=== PATIENT | male | born 1950 | race Caucasian/White ===

== ENCOUNTER 2016-09-05 18:06 | Inpatient (IN) ==
[2016-09-05] MEDS ORDERED: *HR* LORazepam 0.5 MG TABLET PO ONE (19:02)
[2016-09-05] MEDS ORDERED: Vancomycin 1,250 MG in D5% in Water 250 ML IVPB ONE (19:02)
[2016-09-05 19:39] LABS: Basophils % 0.4 %; Eosinophils # 0.1 K/mcL (0.0-0.6); Hematocrit 42.3 % (37.5-50.1); Hemoglobin 14.5 g/dL (12.9-16.9); Immature Granulocytes % 0.1 % (0-4); Lymphocytes # 2.3 K/mcL (0.6-4.6); Lymphocytes % 34.3 %; Mean Corpuscular HGB Conc 34.3 g/dL (31.6-35.5); Mean Corpuscular Hemoglobin 32.9 pg (28.0-33.3); Mean Corpuscular Volume 95.9 fL (83.0-100.0); Mean Platelet Volume 11.4 fL (9.4-12.4); Monocytes # 0.5 K/mcL (0.0-1.3); Monocytes % 7.5 %; Neutrophils # 3.9 K/mcL (1.6-8.9); Platelet Count 178 K/mcL (140-400); Red Blood Count 4.41 M/mcL (4.19-5.50); Red Cell Distribution Width 12.4 % (11.5-14.5); Segmented Neutrophils % 56.7 %
[2016-09-05 19:54] LABS: Alanine Aminotransferase 50 Units/L (0-55); Albumin 4.7 g/dL (3.5-5.0); Albumin/Globulin Ratio 1.4 (1.1-2.2); Alkaline Phosphatase 84 Units/L (38-126); Aspartate Amino Transferase 48 Units/L (5-34); BUN/Creatinine Ratio 16 (6-26); Blood Urea Nitrogen 14 mg/dL (8-26); C-Reactive Protein 2 mg/L (Less than 5); Calcium 10.1 mg/dL (8.6-10.8); Carbon Dioxide 23 mEq/L (19-29); Chloride 105 mEq/L (98-109); Globulin 3.4 g/dL (2.4-3.5); Glucose 125 mg/dL (70-99); Osmolality,Calculated 292 (280-300); Potassium 4.1 mEq/L (3.5-4.5); Sodium 140 mEq/L (136-145); Total Protein 8.1 g/dL (6.0-8.3); eGFR For African Americans > 60 (> 60); eGFR For Non-African Americans > 60 (> 60)
--- NOTE | 2016-09-05 21:23 | Emergency Department Note ---
Disposition Clinical Impression: Osteomyelitis Qualifiers: Osteomyelitis location: unspecified site Chronicity: unspecified Qualified Code (s): M86.9 - Osteomyelitis, unspecified Disposition: Admitted As Inpatient Condition: Good General Adult HPI - General Chief complaint: ED Extremity Problem,Nontraumatic Stated complaint: finger infection s/p cat bite Source: patient, EMS Limitations: no limitations Nursing Notes Reviewed: Yes Vital Signs Reviewed: Yes - History of Present Illness HPI Narrative: 58-year-old male with cat bite 3 weeks ago. He has been getting ceftriaxone at the [facility] every other day. He has had ongoing necrosis to the right index finger. He is right-hand dominant. His redness and streaking is improved but a necrotic base has been ongoing. He was seen by [facility] today and an x-ray was obtained. There is concern for possibility myelitis of the distal phalanx. Pain Scale: 0 - Related Data Home Medications Medication Instructions Recorded Confirmed Amoxicillin/Clavulanate [Augmentin] 875 mg PO BID 09/05/16 09/05/16 Atorvastatin [Lipitor] 60 mg PO HS 09/05/16 09/05/16 Bacitracin OINT [Ak-Tracin] 1 appl TP BID 09/05/16 09/05/16 Doxycycline Monohydrate 100 mg PO Q12H 09/05/16 09/05/16 Naproxen [Naprosyn] 500 mg PO BID PRN 09/05/16 09/05/16 Omeprazole [PriLOSEC] 20 mg PO BIDAC 09/05/16 09/05/16 Allergies Allergy/AdvReac Type Severity Reaction Status Date / Time No Known Allergies Allergy Verified 08/12/16 20:49 All systems ED: reviewed and negative except as stated. Past Medical History - Past Medical History Medical history: Reports: GERD, hyperlipidemia Psychiatric history: Reports: no psych history - Social History Smoking Status: Never smoker Smokeless Tobacco Status: No Alcohol use: Reports: none Drug use: Reports: none Physical Exam Alert and oriented no acute distress Pupils equal and reactive to light Trachea is midline Lungs are clear and equal bilaterally No murmur rub or gallop noted Abdomen is soft and nontender There is a small amount of swelling and aquatic-based the right distal phalanx Extremities are well perfused No neurological deficit - General Limitations: no limitations General appearance: alert, in no apparent distress Course Vital Signs Temperature 97.9 F 09/05/16 18:07 Pulse Rate 64 09/05/16 18:07 Respiratory Rate 16 09/05/16 18:07 Blood Pressure 177/108 09/05/16 18:07 O2 Sat by Pulse Oximetry 98 09/05/16 18:07 Temperature 97.9 F 09/05/16 18:07 Pulse Rate 73 09/05/16 19:38 Respiratory Rate 16 09/05/16 19:38 Blood Pressure 157/108 09/05/16 19:38 O2 Sat by Pulse Oximetry 95 09/05/16 19:38 Oxygen Delivery Oxygen Delivery Room Air Medical Decision Making - MDM Narrative Medical decision making narrative: Vancomycin, ceftriaxone initiated. I discussed the case with the on-call orthopedist. He agreed that the patient could be admitted to medicine and he will appropriately consult first thing in the morning. The patient be nothing by mouth at midnight. Cultures were sent. CRP is pending sedimentation rate is elevated. X-ray shows osteomyelitis. - Medical Records Medical records reviewed: Yes I reviewed the patient's medical records. - Lab Data Lab results reviewed: Yes I reviewed the patient's lab results. Result diagrams: 09/05/16 19:26 09/05/16 19:26 Lab Results 09/05/16 09/05/16 09/05/16 Range/Units 19:26 19:26 19:26 WBC 6.8 (4.3-11.1) K/mcL RBC 4.41 (4.19-5.50) M/mcL Hgb 14.5 (12.9-16.9) g/dL Hct 42.3 (37.5-50.1) % MCV 95.9 (83.0-100.0) fL MCH 32.9 (28.0-33.3) pg MCHC 34.3 (31.6-35.5) g/dL RDW 12.4 (11.5-14.5) % Plt Count 178 (140-400) K/mcL MPV 11.4 (9.4-12.4) fL Immature Gran % 0.1 (0-4) % Seg Neutrophils % 56.7 % Lymphocytes % 34.3 % Monocytes % 7.5 % Eosinophils % 1.0 % Basophils % 0.4 % Neutrophils # 3.9 (1.6-8.9) K/mcL Lymphocytes # 2.3 (0.6-4.6) K/mcL Monocytes # 0.5 (0.0-1.3) K/mcL Eosinophils # 0.1 (0.0-0.6) K/mcL Basophils # 0.0 (0.0-0.2) K/mcL ESR 46 H (0-10) mm/hr Sodium 140 (136-145) mEq/L Potassium 4.1 (3.5-4.5) mEq/L Chloride 105 (98-109) mEq/L Carbon Dioxide 23 (19-29) mEq/L BUN 14 (8-26) mg/dL Creatinine 0.88 (0.72-1.25) mg/dL Est GFR ( Amer) > 60 (> 60) Est GFR (Non-Af Amer) > 60 (> 60) BUN/Creatinine Ratio 16 (6-26) Glucose 125 H (70-99) mg/dL Calculated Osmolality 292 (280-300) Calcium 10.1 (8.6-10.8) mg/dL Total Bilirubin 1.0 (0.2-1.2) mg/dL AST 48 H (5-34) Units/L ALT 50 (0-55) Units/L Alkaline Phosphatase 84 (38-126) Units/L C-Reactive Protein 2 (Less than 5) mg/L Serum Total Protein 8.1 (6.0-8.3) g/dL Albumin 4.7 (3.5-5.0) g/dL Globulin 3.4 (2.4-3.5) g/dL Albumin/Globulin Ratio 1.4 (1.1-2.2)
[2016-09-06] MEDS ORDERED: *HR* Promethazine 25 MG/ML VIAL IVP PRN (02:49)
[2016-09-06] MEDS ORDERED: Naloxone 0.4 MG/ML INJ IVP PRN (02:49)
[2016-09-06] MEDS ORDERED: *HR* HYDROmorphone (PF) 1 MG/ML SYRINGE IVP PRN (02:49)
[2016-09-06] MEDS ORDERED: Acetaminophen 325 MG TABLET PO PRN (02:49)
[2016-09-06] MEDS ORDERED: Vancomycin 1,250 MG in D5% in Water 250 ML IVPB SCH (03:00)
--- NOTE | 2016-09-06 03:03 | Internal Med History&Physical ---
Date of Encounter: 09/06/16 Time of Encounter: 02:45 Assessment and Plan (1) Cat bite of right hand including fingers with infection Status: Acute . Qualifiers: Encounter type: subsequent encounter Qualified Code(s): S61.259D - Open bite of unspecified finger without damage to nail, subsequent encounter; S61.451D - Open bite of right hand, subsequent encounter (2) Osteomyelitis of finger of right hand Status: Acute . (3) Osteoarthritis involving multiple joints on both sides of body Status: Chronic . (4) Accelerated essential hypertension Status: Resolved . (5) Hypertension Status: Chronic . Qualifiers: Hypertension type: essential hypertension Qualified Code(s): I10 - Essential (primary) hypertension Internal Medicine - H&P: HPI Chief complaint: Infection right hand following cat bite Admitted From: Emergency Dept Plans for Post Hospital Care: Home History of present illness: Mr. Uriarte is a 66 year old male [facility] patient with significant history of hyperlipidemia, osteoarthritis, GERD, nonsmoker. The patient was visited and interviewed and examined. Patient was admitted to [facility] via the emergency department as a hospital referral from [facility] [place] patient had been undergoing treatment for a cat bite wound showing progressive signs of infection. The patient originally sustained a bite on 08/09/2016. He had a history cat on his property that he had rescued and had taken to undergo maneuvering procedure. Cat was caged after the nuclear procedure. Cat was being transported to his home at stopped sign the patient with his fingers and occasionally effort is cat and it. The patient on his index finger. An animal bite report was filed. He was managed initially through the emergency department receiving topical cares and oral antibiotic therapy and pain management with signs progression of illness with pain he underwent intravenous antibiotic therapy and wound care through the [facility] outpatient basis. However 3 weeks from the day of original bite of the wound still failed to heal in spite of interventions.. The patient and underwent x-ray of right finger on September 05 and demonstrated findings suggestive of osteomyelitis of the first distal phalanx. With erosion of the tuft of the first distal phalanx with decreased mineralization of the distal phalanx. No fracture or dislocation was identified. First distal soft tissue swelling was also associated. Second finger soft tissue swelling was noted. Moderate to severe degenerative changes of the first through third metacarpophalangeal and previous carpal metacarpal joints also were seen. The patient was transferred to [facility] for definitive evaluation and disposition Findings in the ED: Temperature 97.9-98 degrees pulse 64-90 respirations 16-18 BP 157-177/108. O2 saturation 95-98% room air. (X-ray of the right hand and finger as noted above.) WBC 6.8 hemoglobin 14.5 platelets 178,000. Differential normal. Sedimentation rate 46. Comprehensive metabolic panel normal. BUN 14 creatinine 0.88. Glucose 125 osmolality 292. AST 48 ALT 50. Albumin 4.7 total 8.1. PT 13.9 INR 1.3 PTT 30.6. C-reactive protein 2. TSH 1.308. 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 Patient presents late in course of illness with evidence for outpatient failure of therapeutic interventions. He presents a complicated course and surgical opinion will be sought promptly. Patient remains at risk for further acute clinical decline and morbidity given his presenting chief complaint, findings and comorbidities. Workup and treatments will progress comprehensively. Cumulative laboratory and radiographic data base was reviewed, considered and discussed. Pertinent ancillary medical records including ECW and PCI documentation was reviewed and considered. Given the patient's presenting concerns, past medical history, clinical findings and symptoms, he is admitted at this time will undergo further evaluation and disposition. Orders were written as per the computerized physician telephone order clerk room service system.......................................................................... .................... Consultative opinions will be sought as clinical circumstances justify. Initial consultative opinion has been requested of orthopedic surgery. Wound care consultation. Pain management needs will be addressed. Laboratory and radiographic data base will be updated as appropriate. Studies include: Cultures of blood and wound, CPK, LDH, PT/INR/APTT, Ddimer, cardiac injury panel, BNP, metabolic and hematologic panel, magnesium, phosphorus, ionized calcium, thyroid panel, lipid profile, A1c, C-peptide, CRP, sed rate, blood gas, lactic acid, serologies, etc. Precautions: Aspiration, fall, delirium protocol/surveillance initiated. Telemetry with continuous hemodynamic monitoring and pulse oximetry initiated. Empiric antibody coverage: Intravenous Vancomycin and Zosyn pending culture data. Special studies: right hand/finger x-rays, chest x-ray, telemetry, EKG. Pulmonary toilet: Incentive spirometry. Aerosol bronchodilator, mucolytic, antitussivePRN. Supplemental oxygen. Corticosteroid therapyPRN. CPAP/BiPAP supplemental oxygen deliveryPRN. Aerosol Mucomyst therapyPRN. Fluid and electrolyte repletion efforts will proceed. Careful attention to fluid balance and renal recovery will be emphasized. Avoidance of nephrotoxic exposure and adverse drug drug interaction in the setting of impaired renal function will be monitored closely. Acute coronary syndrome protocol/surveillance initiated. DVT and PUD prophylaxis initiated: PPI therapy, intermittent pneumatic cuffs/ TEDs. Subcutaneous heparin/Lovenox. Early ambulation will be encouraged. Immunization updates recommended. Influenza and pneumococcal vaccinations as part of ongoing preventative healthcare recommendations strongly recommended. Smoking cessation counseling briefly addressed. Patient is a nonsmoker. Advanced care directive discussion briefly addressed. Patient does not declare any healthcare restrictions at this time. Cardiovascular risk appraisal and cardiovascular risk reduction efforts will be emphasized. Physical occupational therapy may be counseled to evaluate patient's function capacity and progressive mobility of her circumstances justify. Nutrition/dietary education counseling may be considered as circumstances justify. Outpatient medication schedules will be reviewed, confirmed and facilitated as appropriate. Reconciliation of home treatments including adjustments, substitutions and reintroduction into the treatment regimen will address necessary maintenance therapies for chronic pre-existing medical conditions. Plan of care has been reviewed and discussed in detail with the patient. Questions addressed. Hospital course and clinical findings, treatment response and potential consultative interventions. Patient is at risk for further acute clinical decline due to his presenting chief complaints, findings and comorbid conditions. Condition is serious. Prognosis is guarded. CODE STATUS is full. Past Med Surg Social Fam HX - Past Medical History Source: old records reviewed Medical history: arthritis (Low back pain. DDD/DJD.), GERD, hyperlipidemia, hypertension, renal disease (BPH?prostatism), other (Actinic keratoses. Seborrheic dermatitis. ED. Peripheral neuropathy. H/O TBI/concussion) Psychiatric history: anxiety - Past Surgical History Surgical History: other - Social History Smoking Status: Never smoker Smokeless Tobacco Status: No Alcohol use: none Drug use: none Occupational status: retired Current living situation: With Family Activity Level: Independent ambulation, Mostly sedentary Recent Out of Country Travel Within the Last 8 Weeks: No Exposure or Possible Exposure to Illness During Travel: No Internal Medicine - H&P: Meds Amoxicillin/Clavulanate [Augmentin] 875 mg PO BID 09/05/16 [History] Atorvastatin [Lipitor] 60 mg PO HS 09/05/16 [History] Bacitracin OINT [Ak-Tracin] 1 appl TP BID 09/05/16 [History] Naproxen [Naprosyn] 500 mg PO BID PRN 09/05/16 [History] Omeprazole [PriLOSEC] 20 mg PO BIDAC 09/05/16 [History] HYDROcodone/Acet 5/325 mg [[place]agraves 5-325 mg] 1 tab PO Q6H PRN #10 tab 09/07/16 [Rx ] Allergies No Known Allergies Allergy (Verified 08/12/16 20:49) All Systems PM: A 10-system review of systems was performed and is negative for pertinent findings except as documented above in the HPI. - Constitutional Constitutional: as per HPI, malaise, no chills, no fever(s), no night sweats - EENT Eyes: as per HPI, no change in vision, no discharge, no pain, no photophobia Ears: as per HPI, no ear discharge, no ear pain, no tinnitus Nose, mouth and throat: as per HPI, no dysphagia, no nasal discharge, no neck pain, no sore throat - Cardiovascular Cardiovascular ROS IM: as per HPI, no chest pain, no diaphoresis, no dyspnea, no lightheadedness, no palpitations, no syncope - Respiratory Respiratory: as per HPI, no cough, no dyspnea, no wheezing, no excessive phlegm production - Gastrointestinal Gastrointestinal: as per HPI, no abdominal pain, no diarrhea, no hematemesis, no hematochezia, no melena, no nausea, no vomiting - Genitourinary Genitourinary ROS male: as per HPI - Musculoskeletal Musculoskeletal ROS IM: as per HPI, deformity, joint swelling, other, no limited range of motion, no numbness, no tingling - Integumentary Integumentary IM: as per HPI, erythema, non-healing lesions, other, no rash, no unusual bruising - Neurological Neurological ROS: as per HPI, no confusion, no convulsions, no focal weakness, no numbness, no tingling, no tremor(s) - Psychiatric Psychiatric: as per HPI - Endocrine Endocrine IM: as per HPI - Hematologic/Lymphatic Hematologic/Lymphatic: as per HPI, no easy bruising - Allergic/Immunologic Allergic/Immunologic: as per HPI - Constitutional Vitals: Temp Pulse Resp BP Pulse Ox 97.6 F 74 17 165/96 96 09/05/16 22:18 09/05/16 22:18 09/05/16 22:18 09/05/16 22:18 09/05/16 22:18 General appearance: Present: cooperative, mild distress, A&O X 3, obese, answers questions appropriately - Head Head exam: Present: atraumatic, normocephalic - Eye Eye exam: Present: EOMI, PERRL, conjuntiva pink, sclera anicteric Pupils: Present: normal accommodation, PERRL - ENT ENT exam: Present: mucous membranes moist, normal oropharynx - Neck Neck exam general surgery: Present: full ROM, supple, trachea midline. Absent: lymphadenopathy - Respiratory Respiratory exam: Present: decreased breath sounds, CTAB. Absent: accessory muscle use, rales, rhonchi, wheezes - Cardiovascular Cardiovascular exam: Present: distant heart sounds, RRR, +S1, +S2. Absent: diastolic murmur, gallop, rubs, systolic murmur - GI/Abdominal GI/Abdominal exam: Present: normal bowel sounds, soft, no peritoneal signs. Absent: distended, tenderness - Extremities Exam Extremities exam: Present: full ROM, warm, radial pulses palpable and symetrical. Absent: calf tenderness, cyanotic, pedal edema - Expanded Upper Extremities Exam Forearm wrist exam: Present: erythema, pain with axial thumb loading, swelling, tenderness. Absent: full ROM Hand wrist exam: Present: erythema, swelling, tenderness. Absent: full ROM, normal inspection Vascular exam: Absent: vascular compromise - Neurological Exam Neurological exam: Present: alert, CN II-XII intact, oriented X3, no focal deficits. Absent: pronater drift, facial droop, speech deficit - Psychiatric Psychiatric exam: Present: normal affect, normal mood - Skin Skin exam: Present: dry, intact, warm Internal Med - H&P Results - Labs CBC & Chem 7: 09/07/16 05:14 09/07/16 05:14 - Impressions Vital Signs Temp Pulse Resp BP Pulse Ox 09/05/16 22:18 97.6 F 74 17 165/96 96 09/05/16 21:44 16 146/77 09/05/16 21:00 73 16 146/77 96 09/05/16 19:38 73 16 157/108 95 09/05/16 18:11 70 16 168/106 96 09/05/16 18:07 97.9 F 64 16 177/108 98 Intake and Output 09/05/16 09/05/16 09/06/16 15:59 23:59 07:59 Intake Total 167 / 167 Balance 167 / 167 Intake: IV Fluids 167 / 167 Vancocin 1,250 MG In 167 / 167 Dextrose 5% 250 ML @ 167 mls/hr IVPB ONCE ONE Rx#: [id number] Other: # Voids 1 Weight 80.739 kg Short CBC 09/05/16 Range/Units 19:26 WBC 6.8 (4.3-11.1) K/mcL Hgb 14.5 (12.9-16.9) g/dL Hct 42.3 (37.5-50.1) % Plt Count 178 (140-400) K/mcL Neutrophils # 3.9 (1.6-8.9) K/mcL BMP 09/05/16 Range/Units 19:26 Sodium 140 (136-145) mEq/L Potassium 4.1 (3.5-4.5) mEq/L Chloride 105 (98-109) mEq/L Carbon Dioxide 23 (19-29) mEq/L BUN 14 (8-26) mg/dL Creatinine 0.88 (0.72-1.25) mg/dL Glucose 125 H (70-99) mg/dL Calcium 10.1 (8.6-10.8) mg/dL Liver Function 09/05/16 Range/Units 19:26 Total Bilirubin 1.0 (0.2-1.2) mg/dL AST 48 H (5-34) Units/L ALT 50 (0-55) Units/L Alkaline Phosphatase 84 (38-126) Units/L Albumin 4.7 (3.5-5.0) g/dL Abnormal lab results ESR 46 mm/hr (0-10) H 09/05/16 19:26 Glucose 125 mg/dL (70-99) H 09/05/16 19:26 AST 48 Units/L (5-34) H 09/05/16 19:26 Allergies Allergy/AdvReac Type Severity Reaction Status Date / Time No Known Allergies Allergy Verified 08/12/16 20:49 Laboratory Results WBC 6.8 K/mcL (4.3-11.1) 09/05/16 19:26 RBC 4.41 M/mcL (4.19-5.50) 09/05/16 19:26 Hgb 14.5 g/dL (12.9-16.9) 09/05/16 19:26 Hct 42.3 % (37.5-50.1) 09/05/16 19: MCV 95.9 fL (83.0-100.0) 09/05/16 19: MCH 32.9 pg (28.0-33.3) 09/05/16 19: MCHC 34.3 g/dL (31.6-35.5) 09/05/16 19:26 RDW 12.4 % (11.5-14.5) 09/05/16 19:26 Plt Count 178 K/mcL (140-400) 09/05/16 19:26 MPV 11.4 fL (9.4-12.4) 09/05/16 19:26 Immature Gran % 0.1 % (0-4) 09/05/16 19: Seg Neutrophils % 56.7 % 09/05/16 19:26 Lymphocytes % 34.3 % 09/05/16 19: Monocytes % 7.5 % 09/05/16 19:26 Eosinophils % 1.0 % 09/05/16 19:26 Basophils % 0.4 % 09/05/16 19:26 Neutrophils # 3.9 K/mcL (1.6-8.9) 09/05/16 19:26 Lymphocytes # 2.3 K/mcL (0.6-4.6) 09/05/16 19: Monocytes # 0.5 K/mcL (0.0-1.3) 09/05/16 19:26 Eosinophils # 0.1 K/mcL (0.0-0.6) 09/05/16 19:26 Basophils # 0.0 K/mcL (0.0-0.2) 09/05/16 19:26 ESR 46 mm/hr (0-10) H 09/05/16 19:26 Sodium 140 mEq/L (136-145) 09/05/16 19:26 Potassium 4.1 mEq/L (3.5-4.5) 09/05/16 19:26 Chloride 105 mEq/L (98-109) 09/05/16 19:26 Carbon Dioxide 23 mEq/L (19-29) 09/05/16 19:26 BUN 14 mg/dL (8-26) 09/05/16 19:26 Creatinine 0.88 mg/dL (0.72-1.25) 09/05/16 19:26 Est GFR ( Amer) > 60 (> 60) 09/05/16 19:26 Est GFR (Non-Af Amer) > 60 (> 60) 09/05/16 19:26 BUN/Creatinine Ratio 16 (6-26) 09/05/16 19:26 Glucose 125 mg/dL (70-99) H 09/05/16 19:26 Calculated Osmolality 292 (280-300) 09/05/16 19:26 Calcium 10.1 mg/dL (8.6-10.8) 09/05/16 19:26 Total Bilirubin 1.0 mg/dL (0.2-1.2) 09/05/16 19:26 AST 48 Units/L (5-34) H 09/05/16 19:26 ALT 50 Units/L (0-55) 09/05/16 19:26 Alkaline Phosphatase 84 Units/L (38-126) 09/05/16 19:26 C-Reactive Protein 2 mg/L (Less than 5) 09/05/16 19:26 Serum Total Protein 8.1 g/dL (6.0-8.3) 09/05/16 19:26 Albumin 4.7 g/dL (3.5-5.0) 09/05/16 19:26 Globulin 3.4 g/dL (2.4-3.5) 09/05/16 19:26 Albumin/Globulin Ratio 1.4 (1.1-2.2) 09/05/16 19:26 Impressions Finger X-Ray 09/05/16 19:03 IMPRESSION: Osteomyelitis of the 1st distal phalanx. 1st digit soft tissue swelling. D/ / Yuan Foss MD / Yuan Foss MD Interpreting Provider: Yuan Foss MD
[2016-09-06] MEDS: 0.9 % Sodium Chloride 1,000 ML IVC SCH ×2 (03:30→23:46)
[2016-09-06] MEDS: Vancomycin 1,250 MG in D5% in Water 250 ML IVPB SCH ×2 (06:29→17:35)
[2016-09-06] MEDS: *HR* Enoxaparin 40 MG/0.4 ML SYRINGE SQ SCH (06:29)
[2016-09-06 06:33] LABS: INR 1.3; Prothrombin Time 13.9 Seconds (9.4-12.1)
[2016-09-06 06:36] LABS: Activated Partial Thrombo Time 30.6 Seconds (26.0-36.0)
[2016-09-06 06:37] LABS: VBG HCO3 24.7 mEq/L (21-27); VBG PH 7.41 pH Units (7.32-7.42)
[2016-09-06 06:48] LABS: Magnesium 1.9 mg/dL (1.6-2.6); Phosphorous 3.9 mg/dL (2.3-4.7)
[2016-09-06 06:49] LABS: Ionized Calcium 1.19 mmol/L (1.15-1.35)
[2016-09-06 06:55] LABS: Hemoglobin A1C 6.7 %
[2016-09-06 07:03] LABS: Thyroid Stimulating Hormone 1.308 mcIU/mL (0.350-4.840)
--- NOTE | 2016-09-06 08:07 | Orthopedic Consult Note ---
Date of Encounter: 09/06/16 Time of Encounter: 07:58 Assessment and Plan (1) Osteomyelitis of finger of right hand Current Visit: Yes Status: Acute I did discuss the diagnosis in detail with the patient. He has a mild By cellulitis of the right index finger with osteomyelitis of the distal phalanx. I did discuss the treatment options including incision, drainage, irrigation, and bony debridement with 4-6 weeks of antibiotics under the direction of the infectious disease specialists which may include oral versus intravenous routing. The other option would be to perform a distal interphalangeal joint disarticulation which I would anticipate a quicker recovery without the need for long-term antibiotics and likely without any functional deficits. The patient had initially wanted to try and save the index finger at all costs but after this discussion he would like to think about it further throughout the day. I will place him on the operating room schedule later today for intervention and he and I will discuss the options again further at that point. Until then he does not require any immobilization. Given the elevated hemoglobin A1c I suspect he probably does have at least prediabetes and will defer to the primary team for further workup and treatment regarding this issue. History of Present Illness Chief complaint: Right index finger infection HPI: Mr. Uriarte is a 66 year old male who was admitted last night to the hospitalist with an infection to the right index finger. The patient sustained a cat bite injury about 3 weeks ago and developed an acute infection for which he went to the emergency department for and received antibiotics. The cat was his. His symptoms continued to worsen and he was sent over by the [facility] last night to the emergency department where he was admitted to the hospitalist. I was consulted to assist in evaluation and management of the patient. The patient denies a history of diabetes but has an elevated hemoglobin A1c suggestive of such. He denies any other medical problems. He complains of mild pain to the tip of the right index finger. He denies any numbness, tingling, or any other associated signs or symptoms. No significant modifying factors. He denies any feelings of illness. He has not had any other treatment. Past Med Surg Social Fam HX - Past Medical History Medical history: GERD, hyperlipidemia, hypertension Psychiatric history: no psych history - Past Surgical History Surgical History: other - Social History Smoking Status: Never smoker Smokeless Tobacco Status: No Alcohol use: none Drug use: none Medications and Allergies Amoxicillin/Clavulanate [Augmentin] 875 mg PO BID 09/05/16 [History] Atorvastatin [Lipitor] 60 mg PO HS 09/05/16 [History] Bacitracin OINT [Ak-Tracin] 1 appl TP BID 09/05/16 [History] Doxycycline Monohydrate 100 mg PO Q12H 09/05/16 [History] Naproxen [Naprosyn] 500 mg PO BID PRN 09/05/16 [History] Omeprazole [PriLOSEC] 20 mg PO BIDAC 09/05/16 [History] Allergies No Known Allergies Allergy (Verified 08/12/16 20:49) All Systems Reviewed: Constitutional and musculoskeletal systems were reviewed and are negative unless otherwise stated in history of present illness. Physical Exam - Constitutional Vitals: Temp Pulse Resp BP Pulse Ox 98.1 F 59 16 121/77 93 L 09/06/16 06:53 09/06/16 06:53 09/06/16 06:53 09/06/16 06:53 09/06/16 06:53 Constitutional -Vitals reviewed -The patient is well developed and well nourished. -Mood is pleasant. -The patient is well groomed. Psychiatric -The patient is fully alert and oriented x 3. Respiratory: -Respiratory effort normal Abdomen: -Soft abdomen -Non tender -Non distended: Left upper extremity: -No deformities. The overlying skin is intact. No obvious signs of acute trauma. -No tenderness to palpation throughout. -No significant pain with passive motion of the shoulder, elbow, wrist, and fingers within the limits of the bed. -Able to make an "OK" sign, cross the index and long fingers, and extend the thumb. -Sensation grossly intact to light touch throughout the median, radial, and ulnar distributions. -Radial pulse is present; Fingers have good capillary refill. Right upper extremity: -No deformities. -At the tip of the index finger there is a 1 cm x 3 mm area of ulceration on the volar pulp which has an overlying eschar. -Mild surrounding erythema at the tip of this digit. -There is no infection tracking up the finger from the area of ulceration. This is a localized process. -No grossly purulent drainage. -Minimal tenderness to palpation at the tip of the index finger. -He has good motion of the digit at both the PIP joint and DIP joint. -No significant pain with passive motion of the shoulder, elbow, wrist, and fingers within the limits of the bed. -Able to make an "OK" sign, cross the index and long fingers, and extend the thumb. -Sensation grossly intact to light touch throughout the median, radial, and ulnar distributions. -Radial pulse is present; Fingers have good capillary refill. Results - Labs Result Diagrams: 09/05/16 19:26 09/05/16 19:26 Labs: Abnormal lab results ESR 46 mm/hr (0-10) H 09/05/16 19:26 PT 13.9 Seconds (9.4-12.1) H 09/06/16 05:44 VBG pCO2 39 mmHg (41-51) L 09/06/16 05:44 VBG pO2 133 mmHg (25-40) H 09/06/16 05:44 Glucose 125 mg/dL (70-99) H 09/05/16 19:26 Hemoglobin A1c 6.7 % (-5.6) H 09/06/16 05:44 AST 48 Units/L (5-34) H 09/05/16 19:26 All other labs normal. - Diagnostic results Wrist/Hand x-ray: image reviewed (I did review the x-rays of the right index finger which do show bony resorption likely related to osteomyelitis given the clinical scenario. This involves the distal phalanx.) Consult Discharge Plan - Plan [facility]errals: [facility] [Primary Care Provider] -
[2016-09-06] MEDS: Piperacillin/Tazobactam 3.375 GM in D5% in Water (Mini-Bag+) 100 ML IVPB SCH ×3 (10:03→23:47)
--- NOTE | 2016-09-06 11:14 | Internal Med Progress Note ---
Date of Encounter: 09/06/16 Time of Encounter: 10:00 - Assessment and plan (1) Osteomyelitis of finger of right hand Current Visit: Yes Status: Acute Assessment and plan: From cat bite. Continue IV antibiotics. Orthopedics consulted. Recommend I&D with long-term intravenous versus disarticulation of the distal interphalangeal joint. Patient considering these options. At high risk for complications from this condition (2) Prediabetes Current Visit: Yes Status: Acute Assessment and plan: A1c 6.7%. Monitor blood sugars. Diabetic diet. (3) Accelerated essential hypertension Current Visit: Yes Status: Resolved Assessment and plan: Likely from pain this has now resolved. (4) Cat bite of right hand including fingers with infection Current Visit: Yes Status: Acute Assessment and plan: On antibiotics Qualifiers: Encounter type: subsequent encounter Qualified Code(s): S61.259D - Open bite of unspecified finger without damage to nail, subsequent encounter; S61.451D - Open bite of right hand, subsequent encounter (5) Hypertension Current Visit: Yes Status: Chronic Assessment and plan: Blood pressure is now better controlled. Patient not on any medications for hypertension at home. Will monitor blood pressure. If persistently elevated, will start antihypertensives. Qualifiers: Hypertension type: essential hypertension Qualified Code(s): I10 - Essential (primary) hypertension - Subjective Interval history: Patient is feeling better today. Still has swelling and redness in his right index finger. No fever or chills reported. No nausea or vomiting. - Constitutional Vitals: Temp Pulse Resp BP Pulse Ox 97.9 F 64 16 125/79 94 L 09/06/16 11:07 09/06/16 11:07 09/06/16 11:07 09/06/16 11:07 09/06/16 11:07 General appearance: Present: cooperative, mild distress, A&O X 3, answers questions appropriately - Respiratory Respiratory exam: Present: CTAB. Absent: accessory muscle use, rales, rhonchi, wheezes - Cardiovascular Cardiovascular exam: Present: RRR, +S1, +S2. Absent: diastolic murmur, gallop, rubs, systolic murmur - GI/Abdominal GI/Abdominal exam: Present: normal bowel sounds, soft, no peritoneal signs. Absent: distended, tenderness - Extremities Exam Extremities exam: Present: warm, radial pulses palpable and symetrical. Absent : calf tenderness, cyanotic, pedal edema Additional comments: Cellulitis involving the right index finger over the distal phalanx with open wound with eschar. No discharge noted. Internal Medicine: Result - Labs CBC & Chem 7: 09/05/16 19:26 09/05/16 19:26 - ABG Interpretation ABG results: PT/INR, D-dimer PT 13.9 Seconds (9.4-12.1) H 09/06/16 05:44 Consult Discharge Plan - Plan [facility]errals: [facility] [Primary Care Provider] - - Attending Attestation This document has been at least partially created by [email or web address] recognition technology by Dr. Orozco. Errors in grammar, wording or other phrases may exist. If errors are found after the documentation is signed, they will be addressed individually in the addendum section of this document when appropriate.
[2016-09-06] MEDS ORDERED: Lidocaine 1% 20 ML MDV ONE ×2 (14:09→14:37)
--- NOTE | 2016-09-06 15:44 | Orthopedic Operative Note ---
Date of procedure: 09/06/16 Procedure: OPERATIVE REPORT DATE OF PROCEDURE: 09/06/2016 SURGEON: Florentino Bergeron MD [employer] APPRENTICE(S): There were no assistants PREOPERATIVE DIAGNOSIS: Right index finger distal phalanx osteomyelitis POSTOPERATIVE DIAGNOSIS: Right index finger distal phalanx osteomyelitis PROCEDURE: Right index finger distal interphalangeal joint disarticulation ANESTHESIA: 1% plain lidocaine PREOPERATIVE ANTIBIOTICS: Standing vancomycin and Zosyn ESTIMATED BLOOD LOSS: 10 milliliters SPECIMENS: Right index finger distal phalanx for culture as well as soft tissue swabs IMPLANTS: There were no implants PREOPERATIVE NOTE AND INDICATIONS: This patient is a 66-year-old male who sustained a cat bite 3 weeks ago which went on to develop distal phalanx osteomyelitis of the index finger on the right. I saw him this morning and discussed the diagnosis in great detail and at length. I did discuss treatment options including debridement and irrigation of the bone followed by several weeks of antibiotics which may, in the form of IV per the infectious disease doctors. I also did discuss distal interphalangeal joint disarticulation for a quicker recovery, anticipated less time on antibiotics, and without any significant functional deficits. After thinking about this at great length the patient decided to have the disarticulation. The surgical plan was discussed with the patient. The risks, benefits, alternatives, and potential complications of this procedure were discussed with the patient including injury to veins, arteries, nerves, tendons, ligaments, and bone. Also discussed were the risks of infection, bleeding, pain, blood clots, the possible need for a blood transfusion, the possible need for further procedures, heart attack, stroke, and . All of this was explained in simple terms, and the patient verbalized understanding and wished to proceed. Consent was given to proceed with surgery. PROCEDURE: The patient was seen in the preoperative holding area where the identify and the consent were confirmed. The right index finger was marked. Final questions were answered. The patient was brought back to the operating room and placed supine on the operating room table. A huddle was performed with the patient and all vital surgical team members confirming patient identity, the correct procedure, and the correct operative site. The local anesthetic was administered. The right upper extremity was prepped and draped in the usual sterile fashion. A surgical time out was performed immediately preceding the incision with all personnel in the operating room to confirm patient identity, the correct operative site and extremity, correct radiographic studies, availability of appropriate surgical equipment, and agreement on the planned procedure. The digital tourniquet was placed and the fishmouth incision was made. Dissection proceeded sharply down to the distal interphalangeal joint and the distal interphalangeal joint was disarticulated. On the back table the distal phalanx was curetted and samples sent for culture in terms of swab as well as bony samples. There is no gross purulence. The fat at the distal portion of the amputated digit was necrotic. After the amputation soft tissue flaps were debrided and they were clean without any appearance of gross infection. The wound was copiously irrigated and the distal condyles of the middle phalanx were trimmed down to form a rounded edge. The skin was very loosely closed with a few interrupted nylon stitches over a small Rosita drain. The tourniquet was taken down and a soft dressing was placed. The instrument, sponge, and needle counts were correct after wound closure. POST OPERATIVE PLAN: Weight Bearing: WBAT through the right upper extremity. DVT Prophylaxis: Ambulation Activity: No aggressive activities with the right upper extremity Wound Care: Daily dressing changes and soaks. Pain Control: Per the primary team. Follow Up: 09/10/16
[2016-09-06] MEDS: *HR* OxyCODONE Immed Rel 5 MG TABLET PO PRN ×2 (15:47→23:48)
[2016-09-07 06:15] LABS: Basophils % 0.3 %; Hematocrit 38.6 % (37.5-50.1); Hemoglobin 13.5 g/dL (12.9-16.9); Immature Granulocytes % 0.3 % (0-4); Mean Corpuscular Hemoglobin 33.8 pg (28.0-33.3); Mean Corpuscular Volume 96.7 fL (83.0-100.0); Mean Platelet Volume 12.1 fL (9.4-12.4); Monocytes # 0.9 K/mcL (0.0-1.3); Monocytes % 8.8 %; Platelet Count 154 K/mcL (140-400); Red Blood Count 3.99 M/mcL (4.19-5.50); Red Cell Distribution Width 12.4 % (11.5-14.5); Segmented Neutrophils % 80.6 %
[2016-09-07 06:29] LABS: BUN/Creatinine Ratio 13 (6-26); Blood Urea Nitrogen 17 mg/dL (8-26); Calcium 9.4 mg/dL (8.6-10.8); Carbon Dioxide 21 mEq/L (19-29); Chloride 104 mEq/L (98-109); Glucose 205 mg/dL (70-99); Osmolality,Calculated 293 (280-300); Sodium 138 mEq/L (136-145); eGFR For African Americans > 60 (> 60); eGFR For Non-African Americans 56 (> 60)
[2016-09-07] MEDS: *HR* Enoxaparin 40 MG/0.4 ML SYRINGE SQ SCH (06:47)
[2016-09-07] MEDS: Vancomycin 1,250 MG in D5% in Water 250 ML IVPB SCH (06:48)
[2016-09-07 06:50] VITALS: BP 124/78
--- NOTE | 2016-09-07 07:35 | Orthopedics Progress Note ---
Date of Encounter: 09/07/16 Time of Encounter: 07:33 - Assessment and Plan (1) Osteomyelitis of finger of right hand Current Visit: Yes Status: Acute Subjective Interval history: S: Pain controlled. Doing well. Had some nausea last night from the pain meds. Would like something less potent from a pain medication standpoint. O: Afeb, VSS Right index finger dressing changed. Looks excellent. No drainage. No redness. Drain pulled. Good motion at PIP joint. Residual tip is sensate and well perfused. A: Post right index finger disarticulation P: Home today on a short course of oral ABX, anticipate Augmentin Daily dressing changes and soaks instructed to the patient. Follow up with me on Saturday for a wound evaluation. Objective Vital signs: Vital Signs Temp Pulse Resp BP Pulse Ox 09/07/16 06:45 98.1 F 65 16 124/78 94 L 09/07/16 04:00 97.5 F L 75 18 168/99 93 L 09/07/16 00:00 97.8 F 60 17 162/88 93 L 09/06/16 21:00 95 09/06/16 20:00 97.8 F 58 17 159/99 95 09/06/16 17:29 158/96 09/06/16 16:00 62 18 158/95 09/06/16 15:54 97.9 F 58 16 147/97 96 09/06/16 11:07 97.9 F 64 16 125/79 94 L 09/06/16 10:39 93 L Intake and Output 09/06/16 09/06/16 09/07/16 15:59 23:59 07:59 Intake Total 350 / 350 1400 / 1400 650 / 650 Output Total 10 / 10 Balance 340 / 340 1400 / 1400 650 / 650 Intake: IV Fluids 350 / 350 1100 / 1100 350 / 350 0.9 % Sodium Chloride 1, 1000 / 1000 000 ML @ 50 mls/hr IVC . Q20H [facility] Rx#:[id number] Zosyn 3.375 GM In 100 / 100 100 / 100 100 / 100 Dextrose 5% (Minibag+) 100 ML 100 ML @ 25 mls/hr IVPB Q8HR [facility] Rx#: [id number] Vancocin 1,250 MG In 250 / 250 250 / 250 Dextrose 5% 250 ML @ 166. 67 mls/hr IVPB Q12H [facility] Rx#:[id number] Oral 300 / 300 300 / 300 Output: Estimated Blood Loss Other: # Voids 1 1 Blood Glucose* 114 176 196 - Labs CBC & BMP: 09/07/16 05:14 09/07/16 05:14 Labs: Abnormal lab results RBC 3.99 M/mcL (4.19-5.50) L 09/07/16 05:14 MCH 33.8 pg (28.0-33.3) H 09/07/16 05:14 ESR 46 mm/hr (0-10) H 09/05/16 19:26 PT 13.9 Seconds (9.4-12.1) H 09/06/16 05:44 VBG pCO2 39 mmHg (41-51) L 09/06/16 05:44 VBG pO2 133 mmHg (25-40) H 09/06/16 05:44 Creatinine 1.27 mg/dL (0.72-1.25) H 09/07/16 05:14 Est GFR (Non-Af Amer) 56 (> 60) L 09/07/16 05:14 Glucose 205 mg/dL (70-99) H 09/07/16 05:14 POC Glucose 176 (58-89) H 09/06/16 22:09 Hemoglobin A1c 6.7 % (-5.6) H 09/06/16 05:44 AST 48 Units/L (5-34) H 09/05/16 19:26 Consult Discharge Plan - Plan Additional Instructions: DISCHARGE INSTRUCTIONS Dr. Bergeron DISCHARGE DIAGNOSIS/PROCEDURE Right index finger DIP joint disarticulation. ACTIVITY: No aggressive activities with the right upper extremity. WOUND CARE: Perform daily dressing changes. Take the entire dressing down, and soaked the right index fingertip and regular strength peroxide for 10 minutes. Pat dry and recover with gauze and Coban. DRIVING: Do not drive while taking narcotic pain medications. DIET: Take your regular diet per the direction of your primary care doctor. MEDICATIONS: Take her pain medication as prescribed by the hospitalist as well as the antibiotic. FOLLOW-UP Follow-up with Dr. Bergeron at the office 09/10/16 for a post operative evaluation. Call the office at [phone] to schedule or confirm your appointment. WHEN TO CALL THE DOCTOR OR WHEN TO SEEK CARE BEFORE YOUR APPOINTMENT 1. Excess swelling or increased numbness not made better by elevating the hand and moving the fingers. 2. Uncontrolled pain. 3. A color change in your hand or fingers. 4. Worsening redness or drainage. 5. Fevers over 100.5 degrees F or 38.1 degrees C. 6. Any symptoms that bring concern to you. Referrals: [facility] [Primary Care Provider] -
[2016-09-07] MEDS ORDERED: 0.9 % Sodium Chloride 1,000 ML IVC SCH (07:38)
[2016-09-07] MEDS ORDERED: 0.9 % Sodium Chloride 1,000 ML IVC ONE (07:38)
[2016-09-07] MEDS: Piperacillin/Tazobactam 3.375 GM in D5% in Water (Mini-Bag+) 100 ML IVPB SCH (07:49)
--- NOTE | 2016-09-07 10:38 | Discharge Summary ---
Date of Encounter: 09/07/16 Time of Encounter: 10:34 - Discharge Diagnosis (1) Osteomyelitis of finger of right hand Priority: Primary Status: Acute (2) Prediabetes Priority: Secondary Status: Acute (3) Accelerated essential hypertension Priority: Secondary Status: Resolved (4) Cat bite of right hand including fingers with infection Priority: Secondary Status: Acute Qualifiers: Encounter type: subsequent encounter Qualified Code(s): S61.259D - Open bite of unspecified finger without damage to nail, subsequent encounter; S61.451D - Open bite of right hand, subsequent encounter (5) Hypertension Priority: Secondary Status: Chronic Qualifiers: Hypertension type: essential hypertension Qualified Code(s): I10 - Essential (primary) hypertension - Discharge Medications Prescriptions: HYDROcodone/Acet 5/325 mg [[place] 5-325 mg] 1 tab PO Q6H PRN #10 tab PRN Reason: Severe Pain Home Medications: Amoxicillin/Clavulanate [Augmentin] 875 mg PO BID 09/05/16 [History] Atorvastatin [Lipitor] 60 mg PO HS 09/05/16 [History] Bacitracin OINT [Ak-Tracin] 1 appl TP BID 09/05/16 [History] Naproxen [Naprosyn] 500 mg PO BID PRN 09/05/16 [History] Omeprazole [PriLOSEC] 20 mg PO BIDAC 09/05/16 [History] HYDROcodone/Acet 5/325 mg [[place] 5-325 mg] 1 tab PO Q6H PRN #10 tab 09/07/16 [Rx ] Allergies/Adverse Reactions: Allergies No Known Allergies Allergy (Verified 08/12/16 20:49) Date of admission: 09/05/16 21:19 [facility] care physician: [facility] Consults: 09/07/16 07:12 Consult to [facility] Specialist [CONS] Routine Comment: NEW ONSET PREDIABETES Discharging clinician: Christy Orozco Anticipated date of discharge: 09/07/16 - Patient Status Disposition: Home, Self-Care Condition: Good Functional capacity at discharge: independent ambulation Overall status at discharge: patient is progressing back to baseline - Discharge Instructions Instructions: Chronic Hypertension (DC) Follow Up With: [facility] [Primary Care Provider] - (In 1-2 weeks) Forms: ED Satisfaction Letter Additional Instructions: DISCHARGE INSTRUCTIONS Dr. Bergeron DISCHARGE DIAGNOSIS/PROCEDURE Right index finger DIP joint disarticulation. ACTIVITY: No aggressive activities with the right upper extremity. WOUND CARE: Perform daily dressing changes. Take the entire dressing down, and soaked the right index fingertip and regular strength peroxide for 10 minutes. Pat dry and recover with gauze and Coban. DRIVING: Do not drive while taking narcotic pain medications. DIET: Take your regular diet per the direction of your primary care doctor. MEDICATIONS: Take her pain medication as prescribed by the hospitalist as well as the antibiotic. FOLLOW-UP Follow-up with Dr. Bergeron at the office 09/10/16 for a post operative evaluation. Call the office at [phone] to schedule or confirm your appointment. WHEN TO CALL THE DOCTOR OR WHEN TO SEEK CARE BEFORE YOUR APPOINTMENT 1. Excess swelling or increased numbness not made better by elevating the hand and moving the fingers. 2. Uncontrolled pain. 3. A color change in your hand or fingers. 4. Worsening redness or drainage. 5. Fevers over 100.5 degrees F or 38.1 degrees C. 6. Any symptoms that bring concern to you. - Diet and Activity Activity: resume usual activities as tolerated Diet: diabetic diet, low fat, low cholesterol, low salt diet Hospital course: Mr. Uriarte is a 66 year old male who was admitted here for cellulitis and osteomyelitis of the index finger of the right hand related to cat bite. She had been on oral antibiotics prior to presentation without improvement in his symptoms. He was treated with intravenous antibiotics. He then underwent surgery with disarticulation of the distal interphalangeal joint of the right index finger. He is improving well and has been cleared for discharge by orthopedics. He will be discharged home and will complete a short antibiotic course with Augmentin. The patient did have slight elevation in his creatinine during his stay here. Likely related to acute infection and dehydration. He received IV fluids and this can further be followed by his primary care provider. Patient also has been diagnosed with early diabetes. His A1c level is 6.7%. His recommended diet control and to stick to diabetic diet. He was provided diabetes education while here in the hospital. - Time Spent with Patient Total time spent providing and/or coordinating discharge services: Less than 30 minutes (25 min) - Constitutional Vitals: Temp Pulse Resp BP Pulse Ox 98.1 F 65 16 124/78 94 L 09/07/16 06:45 09/07/16 06:45 09/07/16 06:45 09/07/16 06:45 09/07/16 06:45 General appearance: Present: cooperative, mild distress, A&O X 3, answers questions appropriately - Respiratory Respiratory exam: Present: CTAB. Absent: accessory muscle use, rales, rhonchi, wheezes - Cardiovascular Cardiovascular exam: Present: RRR, +S1, +S2. Absent: diastolic murmur, gallop, rubs, systolic murmur - Extremities Exam Extremities exam: Present: warm, radial pulses palpable and symetrical. Absent : calf tenderness, cyanotic, pedal edema Additional comments: Status post right index finger distal interphalangeal joint disarticulation. - Attending Attestation This document has been at least partially created by [email or web address] recognition technology by Dr. Orozco. Errors in grammar, wording or other phrases may exist. If errors are found after the documentation is signed, they will be addressed individually in the addendum section of this document when appropriate.
[2016-09-07] MEDS ORDERED: Aminoglycoside Consult 1 EACH MC ONE (13:26)
== END 2016-09-07 13:27 | disposition home or self-care (01) | DRG 988 ==
LOC: EMEROO 18:06 → SUATTDRO 21:19 → 3NENU 21:19
PROVIDERS: ADMIT Internal Medicine; ATTEND Internal Medicine

== ENCOUNTER 2020-11-08 16:01 | Observation (INO) ==
[2020-11-08] MEDS ORDERED: Naloxone 0.4 MG/ML INJ IVP PRN (20:43)
[2020-11-08] MEDS ORDERED: Ondansetron 4 MG/2 ML VIAL IVP PRN (20:43)
[2020-11-08] MEDS ORDERED: Acetaminophen 325 MG TABLET PO PRN (20:43)
[2020-11-08] MEDS ORDERED: Dextrose Gel 15 GM/37.5 ML TUBE PO PRN ×2 (20:46)
[2020-11-08] MEDS ORDERED: D5% in Water 1,000 ML IVC PRN (20:46)
[2020-11-08] MEDS ORDERED: *HR* Dextrose 50 % in Water (Vial) 50 ML VIAL IVP PRN (20:46)
[2020-11-08] MEDS ORDERED: Insulin LISPRO 300 UNITS/3 ML VIAL SUBQ SCH (21:00)
[2020-11-08 21:29] LABS: Basophils % 0.5 %; Eosinophils # 0.1 K/mcL (0.0-0.6); Eosinophils % 1.1 %; Hematocrit 37.7 % (37.5-50.1); Hemoglobin 13.1 g/dL (12.9-16.9); Immature Granulocytes % 0.4 % (0-4); Lymphocytes # 3.2 K/mcL (0.6-4.6); Lymphocytes % 42.5 %; Mean Corpuscular HGB Conc 34.7 g/dL (31.6-35.5); Mean Corpuscular Hemoglobin 33.2 pg (28.0-33.3); Mean Corpuscular Volume 95.7 fL (83.0-100.0); Mean Platelet Volume 11.8 fL (9.4-12.4); Monocytes # 0.5 K/mcL (0.0-1.3); Monocytes % 6.9 %; Neutrophils # 3.7 K/mcL (1.6-8.9); Platelet Count 142 K/mcL (140-400); Red Blood Count 3.94 M/mcL (4.19-5.50); Red Cell Distribution Width 11.2 % (11.5-14.5); Segmented Neutrophils % 48.6 %; White Blood Count 7.5 K/mcL (4.3-11.1)
[2020-11-08 21:34] LABS: Estimated Average Glucose 378 mg/dl; Hemoglobin A1C 14.8 %
[2020-11-08 21:51] LABS: Alanine Aminotransferase 24 Units/L (7-52); Albumin 3.7 g/dL (3.5-5.7); Albumin/Globulin Ratio 1.7 (1.1-2.2); Alkaline Phosphatase 69 Units/L (34-104); Aspartate Amino Transferase 19 Units/L (13-39); BUN/Creatinine Ratio 20 (6-26); Bilirubin,Total 0.5 mg/dL (0.3-1.0); Blood Urea Nitrogen 17 mg/dL (8-23); Calcium 8.6 mg/dL (8.6-10.3); Carbon Dioxide 25 mEq/L (23-29); Chloride 104 mEq/L (98-107); Globulin 2.2 g/dL (2.4-3.5); Glucose 204 mg/dL (70-105); Magnesium 1.9 mg/dL (1.6-2.6); Osmolality,Calculated 289 (280-300); Potassium 3.5 mEq/L (3.5-5.1); Sodium 136 mEq/L (136-145); Total Protein 5.9 g/dL (6.4-8.9); eGFR For African Americans > 60 (> 60); eGFR For Non-African Americans > 60 (> 60)
[2020-11-08] MEDS ORDERED: Insulin DETEMIR 100 UNIT/ML X5UNITS SUBQ SCH (22:15)
[2020-11-09 02:11] LABS: INR 1.1; Prothrombin Time 12.9 Seconds (9.4-12.1)
[2020-11-09 02:19] LABS: BUN/Creatinine Ratio 23 (6-26); Blood Urea Nitrogen 17 mg/dL (8-23); Calcium 8.2 mg/dL (8.6-10.3); Carbon Dioxide 24 mEq/L (23-29); Chloride 108 mEq/L (98-107); Glucose 146 mg/dL (70-105); Magnesium 1.9 mg/dL (1.6-2.6); Osmolality,Calculated 292 (280-300); Phosphorous 2.8 mg/dL (2.7-4.5); Potassium 3.4 mEq/L (3.5-5.1); Sodium 139 mEq/L (136-145); eGFR For African Americans > 60 (> 60); eGFR For Non-African Americans > 60 (> 60)
[2020-11-09 07:29] VITALS: BP 107/75
[2020-11-09] MEDS ORDERED: Insulin LISPRO 300 UNITS/3 ML VIAL SUBQ SCH (07:30)
== END 2020-11-09 11:50 | disposition home or self-care (01) ==
LOC: 2NNU → SUATTDRO 20:06
PROVIDERS: ADMIT Internal Medicine; ATTEND Family Medicine